=== PATIENT | male | born 1965 | race Two or more races ===

== ENCOUNTER 2018-11-01 09:29 | Inpatient (IN) | payer BC ==
[~2018-11-01] VITALS: Ht 162.6 cm; Wt 54.9 kg
[2018-11-25 14:00] VITALS: BP 116/70
== END 2018-11-25 15:39 | DRG 853 ==
LOC: ED 11:07 → EDIP 12:57 → 3NW 13:14 → 3NE 11-18 20:45
PROVIDERS: ADMIT Hospitalist; ATTEND Hospitalist
PROC: 0KBS0ZZ Excision of Right Lower Leg Muscle, Open Approach (ICD-10-PCS; principal; 2018-11-06)
PROC: 03HY32Z Insertion of Monitoring Device into Upper Artery, Percutaneous Approach (ICD-10-PCS; 2018-11-06)
PROC: 0KDS0ZZ Extraction of Right Lower Leg Muscle, Open Approach (ICD-10-PCS; 2018-11-11)
PROC: 0LBN0ZZ Excision of Right Lower Leg Tendon, Open Approach (ICD-10-PCS; 2018-11-13)
PROC: 0JBN0ZZ Excision of Right Lower Leg Subcutaneous Tissue and Fascia, Open Approach (ICD-10-PCS; 2018-11-16)
DX: A41.9 Sepsis, unspecified organism (principal); E43 Unspecified severe protein-calorie malnutrition; M72.6 Necrotizing fasciitis; E87.1 Hypo-osmolality and hyponatremia; L02.415 Cutaneous abscess of right lower limb; L02.611 Cutaneous abscess of right foot; L03.115 Cellulitis of right lower limb; D63.8 Anemia in other chronic diseases classified elsewhere; Z83.3 Family history of diabetes mellitus; Z87.891 Personal history of nicotine dependence; Z91.19 Patient's noncompliance with other medical treatment and regimen; E11.65 Type 2 diabetes mellitus with hyperglycemia; E11.40 Type 2 diabetes mellitus with diabetic neuropathy, unspecified; M60.871 Other myositis, right ankle and foot; Z68.20 Body mass index [BMI] 20.0-20.9, adult
CPT/HCPCS: 36415; 73610; 73630; 84145; 87106; 96361; 99291; J3490; 36573; 80048; 80053; 80061; 80202; 81001; 82962; 83036; 83605; 84443; 85025; 85651; 86140; 87040; 87070; 87081; 87205; 93005; 93922; 96374; 96375; A9585; G0378; J0171; J0690; J0692; J0744; J1100; J1170; J1335; J1644; J1885; J2250; J2405; J2543; J2704; J2997; J3010; J3370; Q9967; C1751; J0330; J0360; J1815; J2370; J7030; J7050; J7120

== ENCOUNTER 2019-04-10 19:22 | Inpatient (IN) | payer BC, MEDICAID ==
[~2019-04-10] VITALS: Ht 162.6 cm; Wt 61.2 kg
[~2019-04-10 19:22] MED LIST: ACET325T26 PO; INSU100I13 SQ-INSULIN; LISI5TAB7 PO; PANT40TA5 PO
[2019-04-10] MEDS ORDERED: SODIUM CHLORIDE FLUSH 10ML SYR IVF ONE (20:00)
[2019-04-10 20:13] LABS: BASOPHILS # (AUTO) 0.02 x10^3/uL (0-0.1); BASOPHILS % (AUTO) 0 % (0-1); EOSINOPHILS # (AUTO) 0.26 x10^3/uL (0-0.4); EOSINOPHILS % (AUTO) 2 % (1-7); LYMPHOCYTES # (AUTO) 1.22 x10^3/uL (1-3.4); LYMPHOCYTES % (AUTO) 9 % (22-44); MD NO; MEAN CORPUSCULAR HEMOGLOBIN 29.2 pg (27.5-34.5); MEAN CORPUSCULAR HGB CONC 32.9 g/dL (33.2-36.2); MEAN CORPUSCULAR VOLUME 88.8 fL (81-97); MEAN PLATELET VOLUME 9.7 fL (7.4-10.4); MONOCYTES # (AUTO) 0.98 x10^3/uL (0.2-0.8); MONOCYTES % (AUTO) 7 % (2-9); NEUTROPHILS # (AUTO) 11.32 x10^3/uL (1.8-6.8); NEUTROPHILS % (AUTO) 82 % (42-75); PLATELET COUNT 245 x10^3/uL (130-400); RED BLOOD COUNT 4.18 x10^6/uL (4.38-5.82); RED CELL DISTRIBUTION WIDTH 15.4 % (9.4-14.8)
[2019-04-10 20:25] LABS: ALANINE AMINOTRANSFERASE 52 U/L (12-78); ALBUMIN 2.5 g/dL (3.4-5.0); ANION GAP 11 mmol/L (5-15); CALCIUM 8.6 mg/dL (8.5-10.1); CHLORIDE 106 mmol/L (98-107); CREATININE 0.67 mg/dL (0.7-1.3)
[2019-04-10 20:28] LABS: ALKALINE PHOSPHATASE 253 U/L (45-117); BILIRUBIN,TOTAL 0.5 mg/dL (0.2-1.0); TOTAL PROTEIN 6.7 g/dL (6.4-8.2)
--- NOTE | 2019-04-10 20:35 | NUR ---
pt called to room from lobby
--- NOTE | 2019-04-10 20:50 | NUR ---
FIRST CONTACT WITH PT. PT SITTING UP IN [facility], STACY NOTED. PT REPORTS NON-PAINFUL RLE SWELLING/WOUND X SEVERAL MONTHS DESPITE SURGICAL DEBRIDEMENT. PT REPORTS THAT HE HAD BEEN USING WOUND CARE FOR SEVERAL MONTHS AND STOPPED APPROX TWO MONTHS AGO. RLE DISCOLORED X THREE DAYS, +3 PITTING EDEMA. LARGE OPEN WOUNDS NOTED OVER ANTERIOR ANKLE AND MEDIAL MALLEOLUS. LITTLE DRAINAGE NOTED. +DISTAL CAP REFILL AND STRONG PEDAL PULSES PRESENT. PT IS A NON-COMPLIANT TYPE TWO DIABETIC, "I AM SUPPOSE TO BE ON METFORMIN, BUT I HAVEN'T TAKEN IT FOR MONTHS". NOT ON ANTIBIOTICS CURRENTLY. BP/SPO2 MONITORING IN PLACE. AWAITING US.
[2019-04-10] MEDS ORDERED: PIPERACILLIN/TAZO/PMX 3.375GM 50 ML ONE (21:50)
[2019-04-10 21:52] LABS: HCT (SEDRATE) 37.1 % (39.2-51.8)
--- NOTE | 2019-04-10 21:59 | NUR ---
ABX INITIATED. BC X2 DRAWN PRIOR TO ADMIN
[2019-04-10] MEDS ORDERED: PIPERACILLIN/TAZO/PMX 3.375GM 50 ML IV ONE (22:00)
--- NOTE | 2019-04-10 22:40 | NUR ---
NO S/S OF ABX RXN NOTED. PT CONTINUES TO DENY PAIN
--- NOTE | 2019-04-10 23:18 | NUR ---
PT RESTING COMFORTABLY IN [facility]. PT CONTINUES TO DENY PAIN. AWAITING ADMIT
[2019-04-10] MEDS ORDERED: SODIUM CHLORIDE FLUSH 10ML SYR IVF PRN (23:30)
--- NOTE | 2019-04-10 23:45 | NUR ---
REPORT TO JOEL ALLEN
[2019-04-11 00:30] VITALS: BP 151/95
[2019-04-11 00:32] VITALS: BP 151/95
[2019-04-11] MEDS ORDERED: ERTAPENEM 1 GM in SODIUM CHLORIDE 0.9% 50 ML IV SCH (02:30)
[2019-04-11] MEDS: INSULIN LISPRO 100 UNITS/ML, PEN SQ-INSULIN SCH ×5 (02:30→21:43)
[2019-04-11] MEDS: DAPTOMYCIN 370 MG in SODIUM CHLORIDE 0.9% 100 ML IVPB SCH (03:44)
[2019-04-11] MEDS: PIPERACILLIN/TAZO/PMX 3.375GM 50 ML IV SCH ×4 (05:02→23:34)
[2019-04-11 08:18] VITALS: BP 151/96
[2019-04-11] MEDS: PANTOPROZOLE 40MG TABLET PO SCH (08:46)
[2019-04-11] MEDS: LISINOPRIL 5 MG TABLET PO SCH (08:46)
[2019-04-11] MEDS: HEPARIN 5,000 UNITS/ML, 1ML SQ SCH ×3 (08:46→23:34)
[2019-04-11] MEDS ORDERED: INSULIN GLARGINE 100 UNITS/ML, PEN SQ-INSULIN SCH ×2 (09:00→21:00)
[2019-04-11 12:58] VITALS: BP 138/85
[2019-04-11] MEDS ORDERED: GADOTERATE 7.5 MMOL/15 ML SYR ONE (14:09)
[2019-04-11 20:56] VITALS: BP 167/91
[2019-04-11] MEDS: ACETAMINOPHEN 325 MG TABLET PO PRN (21:42)
[2019-04-12 02:21] VITALS: BP 138/75
[2019-04-12] MEDS: DAPTOMYCIN 370 MG in SODIUM CHLORIDE 0.9% 100 ML IVPB SCH (02:44)
[2019-04-12 05:07] LABS: BASOPHILS # (AUTO) 0.06 x10^3/uL (0-0.1); BASOPHILS % (AUTO) 1 % (0-1); EOSINOPHILS # (AUTO) 0.14 x10^3/uL (0-0.4); EOSINOPHILS % (AUTO) 1 % (1-7); LYMPHOCYTES # (AUTO) 1.91 x10^3/uL (1-3.4); LYMPHOCYTES % (AUTO) 18 % (22-44); MD NO; MEAN CORPUSCULAR HEMOGLOBIN 28.9 pg (27.5-34.5); MEAN CORPUSCULAR HGB CONC 32.8 g/dL (33.2-36.2); MEAN CORPUSCULAR VOLUME 88.2 fL (81-97); MEAN PLATELET VOLUME 9.4 fL (7.4-10.4); MONOCYTES # (AUTO) 1.03 x10^3/uL (0.2-0.8); MONOCYTES % (AUTO) 10 % (2-9); NEUTROPHILS # (AUTO) 7.38 x10^3/uL (1.8-6.8); NEUTROPHILS % (AUTO) 70 % (42-75); PLATELET COUNT 233 x10^3/uL (130-400); RED BLOOD COUNT 3.57 x10^6/uL (4.38-5.82); RED CELL DISTRIBUTION WIDTH 15.8 % (9.4-14.8)
[2019-04-12 05:12] LABS: ANION GAP 7 mmol/L (5-15); CALCIUM 8.2 mg/dL (8.5-10.1); CHLORIDE 109 mmol/L (98-107)
[2019-04-12 05:13] LABS: CREATININE 0.52 mg/dL (0.7-1.3)
[2019-04-12] MEDS: PIPERACILLIN/TAZO/PMX 3.375GM 50 ML IV SCH ×4 (05:38→23:16)
[2019-04-12 05:42] LABS: HEMOGLOBIN A1C 11.5 % (4.2-6.3)
[2019-04-12] MEDS: INSULIN LISPRO 100 UNITS/ML, PEN SQ-INSULIN SCH ×4 (07:00→21:52)
[2019-04-12 07:18] VITALS: BP 149/89
[2019-04-12] MEDS: HEPARIN 5,000 UNITS/ML, 1ML SQ SCH ×3 (07:57→23:17)
[2019-04-12] MEDS: LISINOPRIL 5 MG TABLET PO SCH (07:58)
[2019-04-12] MEDS: PANTOPROZOLE 40MG TABLET PO SCH (07:58)
[2019-04-12] MEDS ORDERED: INSULIN GLARGINE 100 UNITS/ML, PEN SQ-INSULIN SCH (09:00)
[2019-04-12 12:04] VITALS: BP 165/96
[2019-04-12 20:15] VITALS: BP 167/92
[2019-04-12] MEDS: INSULIN GLARGINE 100 UNITS/ML, PEN SQ-INSULIN SCH (21:52)
[2019-04-12] MEDS: ACETAMINOPHEN 325 MG TABLET PO PRN (21:53)
[2019-04-13 02:17] VITALS: BP 153/82
[2019-04-13] MEDS: DAPTOMYCIN 370 MG in SODIUM CHLORIDE 0.9% 100 ML IVPB SCH (03:09)
[2019-04-13 05:12] LABS: BASOPHILS # (AUTO) 0.07 x10^3/uL (0-0.1); BASOPHILS % (AUTO) 1 % (0-1); EOSINOPHILS # (AUTO) 0.21 x10^3/uL (0-0.4); EOSINOPHILS % (AUTO) 2 % (1-7); LYMPHOCYTES # (AUTO) 1.91 x10^3/uL (1-3.4); LYMPHOCYTES % (AUTO) 16 % (22-44); MD NO; MEAN CORPUSCULAR HEMOGLOBIN 28.7 pg (27.5-34.5); MEAN CORPUSCULAR HGB CONC 32.5 g/dL (33.2-36.2); MEAN CORPUSCULAR VOLUME 88.5 fL (81-97); MEAN PLATELET VOLUME 8.9 fL (7.4-10.4); MONOCYTES # (AUTO) 1.04 x10^3/uL (0.2-0.8); MONOCYTES % (AUTO) 9 % (2-9); NEUTROPHILS % (AUTO) 73 % (42-75); PLATELET COUNT 255 x10^3/uL (130-400); RED BLOOD COUNT 3.65 x10^6/uL (4.38-5.82)
[2019-04-13] MEDS: PIPERACILLIN/TAZO/PMX 3.375GM 50 ML IV SCH ×4 (05:12→23:29)
[2019-04-13 05:23] LABS: ANION GAP 6 mmol/L (5-15); CALCIUM 8.3 mg/dL (8.5-10.1); CHLORIDE 110 mmol/L (98-107)
[2019-04-13 05:25] LABS: CREATININE 0.53 mg/dL (0.7-1.3)
[2019-04-13] MEDS: INSULIN LISPRO 100 UNITS/ML, PEN SQ-INSULIN SCH ×4 (07:00→20:56)
[2019-04-13 07:33] VITALS: BP 152/87
[2019-04-13] MEDS: HEPARIN 5,000 UNITS/ML, 1ML SQ SCH ×3 (07:42→23:29)
[2019-04-13] MEDS: LISINOPRIL 5 MG TABLET PO SCH (07:43)
[2019-04-13] MEDS: PANTOPROZOLE 40MG TABLET PO SCH (07:43)
[2019-04-13] MEDS: INSULIN GLARGINE 100 UNITS/ML, PEN SQ-INSULIN SCH ×2 (07:43→20:56)
[2019-04-13] MEDS ORDERED: FLU VACC QS2019-20 36MOS UP/PF 0.5 ML IM-VACC ONE (11:00)
[2019-04-13 13:48] VITALS: BP 174/93
[2019-04-13 19:29] VITALS: BP 176/98
[2019-04-14 02:10] VITALS: BP 160/86
[2019-04-14] MEDS: DAPTOMYCIN 370 MG in SODIUM CHLORIDE 0.9% 100 ML IVPB SCH (02:56)
[2019-04-14] MEDS: PIPERACILLIN/TAZO/PMX 3.375GM 50 ML IV SCH ×4 (05:07→23:24)
[2019-04-14 05:51] LABS: BASOPHILS # (AUTO) 0.22 x10^3/uL (0-0.1); BASOPHILS % (AUTO) 2 % (0-1); EOSINOPHILS # (AUTO) 0.23 x10^3/uL (0-0.4); EOSINOPHILS % (AUTO) 2 % (1-7); LYMPHOCYTES % (AUTO) 18 % (22-44); MD NO; MEAN CORPUSCULAR HEMOGLOBIN 28.9 pg (27.5-34.5); MEAN CORPUSCULAR HGB CONC 33.2 g/dL (33.2-36.2); MEAN CORPUSCULAR VOLUME 87.2 fL (81-97); MONOCYTES # (AUTO) 0.67 x10^3/uL (0.2-0.8); MONOCYTES % (AUTO) 6 % (2-9); NEUTROPHILS # (AUTO) 7.64 x10^3/uL (1.8-6.8); NEUTROPHILS % (AUTO) 72 % (42-75); PLATELET COUNT 256 x10^3/uL (130-400); RED BLOOD COUNT 3.67 x10^6/uL (4.38-5.82); RED CELL DISTRIBUTION WIDTH 16.3 % (9.4-14.8)
[2019-04-14 06:00] LABS: ANION GAP 6 mmol/L (5-15); CALCIUM 8.3 mg/dL (8.5-10.1); CHLORIDE 111 mmol/L (98-107); CREATININE 0.48 mg/dL (0.7-1.3)
[2019-04-14] MEDS: INSULIN LISPRO 100 UNITS/ML, PEN SQ-INSULIN SCH ×4 (07:00→21:08)
[2019-04-14 07:11] VITALS: BP 146/83
[2019-04-14] MEDS: LISINOPRIL 5 MG TABLET PO SCH (08:10)
[2019-04-14] MEDS: PANTOPROZOLE 40MG TABLET PO SCH (08:11)
[2019-04-14] MEDS: INSULIN GLARGINE 100 UNITS/ML, PEN SQ-INSULIN SCH ×3 (08:11→21:08)
[2019-04-14] MEDS: HEPARIN 5,000 UNITS/ML, 1ML SQ SCH ×3 (08:11→23:24)
[2019-04-14 13:25] VITALS: BP 134/84
[2019-04-14 18:39] VITALS: BP 157/90
[2019-04-15 02:13] VITALS: BP 160/89
[2019-04-15] MEDS: DAPTOMYCIN 370 MG in SODIUM CHLORIDE 0.9% 100 ML IVPB SCH (02:38)
[2019-04-15] MEDS: PIPERACILLIN/TAZO/PMX 3.375GM 50 ML IV SCH ×4 (05:08→23:30)
[2019-04-15 05:35] LABS: BASOPHILS # (AUTO) 0.04 x10^3/uL (0-0.1); BASOPHILS % (AUTO) 1 % (0-1); EOSINOPHILS # (AUTO) 0.19 x10^3/uL (0-0.4); EOSINOPHILS % (AUTO) 2 % (1-7); LYMPHOCYTES # (AUTO) 1.88 x10^3/uL (1-3.4); LYMPHOCYTES % (AUTO) 20 % (22-44); MD NO; MEAN CORPUSCULAR HEMOGLOBIN 28.4 pg (27.5-34.5); MEAN CORPUSCULAR HGB CONC 32.8 g/dL (33.2-36.2); MEAN CORPUSCULAR VOLUME 86.7 fL (81-97); MEAN PLATELET VOLUME 8.6 fL (7.4-10.4); MONOCYTES # (AUTO) 0.64 x10^3/uL (0.2-0.8); MONOCYTES % (AUTO) 7 % (2-9); NEUTROPHILS # (AUTO) 6.88 x10^3/uL (1.8-6.8); NEUTROPHILS % (AUTO) 71 % (42-75); PLATELET COUNT 254 x10^3/uL (130-400); RED BLOOD COUNT 3.53 x10^6/uL (4.38-5.82); RED CELL DISTRIBUTION WIDTH 15.7 % (9.4-14.8)
[2019-04-15 05:56] LABS: ANION GAP 7 mmol/L (5-15); CALCIUM 8.5 mg/dL (8.5-10.1); CHLORIDE 111 mmol/L (98-107)
[2019-04-15 05:59] LABS: CREATININE 0.63 mg/dL (0.7-1.3)
[2019-04-15] MEDS: INSULIN LISPRO 100 UNITS/ML, PEN SQ-INSULIN SCH ×4 (07:00→21:38)
[2019-04-15] MEDS: INSULIN GLARGINE 100 UNITS/ML, PEN SQ-INSULIN SCH ×2 (09:00→21:39)
[2019-04-15] MEDS: HEPARIN 5,000 UNITS/ML, 1ML SQ SCH ×3 (09:23→23:30)
[2019-04-15] MEDS: PANTOPROZOLE 40MG TABLET PO SCH (09:23)
[2019-04-15] MEDS: LISINOPRIL 5 MG TABLET PO SCH (09:23)
[2019-04-15 11:20] VITALS: BP 162/92
[2019-04-15 15:17] VITALS: BP 168/97
[2019-04-15 18:37] VITALS: BP 177/95
[2019-04-15] MEDS ORDERED: LISINOPRIL 5 MG TABLET PO SCH (19:30)
[2019-04-15 21:37] VITALS: BP 174/99
[2019-04-16 01:05] VITALS: BP 165/89
[2019-04-16] MEDS: PIPERACILLIN/TAZO/PMX 3.375GM 50 ML IV SCH ×4 (05:04→23:42)
[2019-04-16] MEDS: INSULIN LISPRO 100 UNITS/ML, PEN SQ-INSULIN SCH ×4 (07:00→21:07)
[2019-04-16] MEDS: PANTOPROZOLE 40MG TABLET PO SCH (08:38)
[2019-04-16] MEDS: LISINOPRIL 5 MG TABLET PO SCH (08:38)
[2019-04-16] MEDS: HEPARIN 5,000 UNITS/ML, 1ML SQ SCH ×3 (08:38→23:42)
[2019-04-16] MEDS: INSULIN GLARGINE 100 UNITS/ML, PEN SQ-INSULIN SCH ×2 (08:38→21:07)
[2019-04-16] MEDS ORDERED: MORPHINE SULFATE 4 MG/ML, 1ML ONE (10:57)
[2019-04-16] MEDS ORDERED: MORPHINE SULFATE 4 MG/ML, 1ML IVPush PRN (11:00)
[2019-04-16] MEDS ORDERED: MORPHINE SULFATE 4 MG/ML, 1ML IVPush ONE (11:30)
[2019-04-16] MEDS ORDERED: LISINOPRIL 5 MG TABLET PO ONE (13:00)
[2019-04-16 13:30] VITALS: BP 165/93
[2019-04-16] MEDS: metFORMIN 500 MG TABLET PO SCH (16:37)
[2019-04-16 19:24] VITALS: BP 172/92
[2019-04-16 20:55] VITALS: BP 168/88
[2019-04-17] VITALS (9 sets, daily range): BP systolic 155–182; BP diastolic 81–96
[2019-04-17] MEDS: PIPERACILLIN/TAZO/PMX 3.375GM 50 ML IV SCH ×3 (05:03→17:09)
[2019-04-17 05:29] LABS: BASOPHILS # (AUTO) 0.04 x10^3/uL (0-0.1); BASOPHILS % (AUTO) 0 % (0-1); EOSINOPHILS # (AUTO) 0.23 x10^3/uL (0-0.4); EOSINOPHILS % (AUTO) 2 % (1-7); LYMPHOCYTES # (AUTO) 1.82 x10^3/uL (1-3.4); LYMPHOCYTES % (AUTO) 19 % (22-44); MD NO; MEAN CORPUSCULAR HEMOGLOBIN 29.6 pg (27.5-34.5); MEAN CORPUSCULAR HGB CONC 33.4 g/dL (33.2-36.2); MEAN CORPUSCULAR VOLUME 88.4 fL (81-97); MEAN PLATELET VOLUME 9.1 fL (7.4-10.4); MONOCYTES % (AUTO) 5 % (2-9); NEUTROPHILS # (AUTO) 6.96 x10^3/uL (1.8-6.8); NEUTROPHILS % (AUTO) 73 % (42-75); PLATELET COUNT 251 x10^3/uL (130-400); RED BLOOD COUNT 3.75 x10^6/uL (4.38-5.82); RED CELL DISTRIBUTION WIDTH 16.2 % (9.4-14.8)
[2019-04-17 05:35] LABS: ANION GAP 6 mmol/L (5-15); CALCIUM 8.5 mg/dL (8.5-10.1); CHLORIDE 108 mmol/L (98-107); CREATININE 0.69 mg/dL (0.7-1.3)
[2019-04-17] MEDS: INSULIN LISPRO 100 UNITS/ML, PEN SQ-INSULIN SCH ×4 (07:00→21:27)
[2019-04-17] MEDS ORDERED: CEFAZOLIN 2,000 MG in SODIUM CHLORIDE 0.9% 50 ML IV SCH (08:30)
[2019-04-17] MEDS: HEPARIN 5,000 UNITS/ML, 1ML SQ SCH ×2 (09:54→15:49)
[2019-04-17] MEDS: metFORMIN 500 MG TABLET PO SCH ×2 (09:55→17:09)
[2019-04-17] MEDS: PANTOPROZOLE 40MG TABLET PO SCH (09:55)
[2019-04-17] MEDS: LISINOPRIL 5 MG TABLET PO SCH (09:55)
[2019-04-17] MEDS: INSULIN GLARGINE 100 UNITS/ML, PEN SQ-INSULIN SCH ×2 (09:56→21:27)
[2019-04-17] MEDS ORDERED: ENALAPRILAT 1.25 MG/ML, 2ML IV PRN (13:00)
[2019-04-17] MEDS: AMLODIPINE 5 MG TABLET PO SCH (13:06)
[2019-04-17] MEDS ORDERED: hydrALAzine 20 MG/ML, 1ML IV PRN (16:30)
[2019-04-18] MEDS: PIPERACILLIN/TAZO/PMX 3.375GM 50 ML IV SCH ×5 (00:02→23:26)
[2019-04-18] MEDS: HEPARIN 5,000 UNITS/ML, 1ML SQ SCH ×3 (00:04→16:01)
[2019-04-18 02:21] VITALS: BP 149/85
[2019-04-18 06:53] VITALS: BP 138/81
[2019-04-18] MEDS: INSULIN LISPRO 100 UNITS/ML, PEN SQ-INSULIN SCH ×4 (07:00→20:46)
[2019-04-18] MEDS: metFORMIN 500 MG TABLET PO SCH ×2 (09:57→16:01)
[2019-04-18] MEDS: PANTOPROZOLE 40MG TABLET PO SCH (09:57)
[2019-04-18] MEDS: AMLODIPINE 5 MG TABLET PO SCH (09:57)
[2019-04-18] MEDS: INSULIN GLARGINE 100 UNITS/ML, PEN SQ-INSULIN SCH ×2 (09:57→20:46)
[2019-04-18] MEDS: LISINOPRIL 5 MG TABLET PO SCH (09:58)
[2019-04-18 13:14] VITALS: BP 155/88
[2019-04-18 18:53] VITALS: BP 149/87
[2019-04-19 02:24] VITALS: BP 139/79
[2019-04-19] MEDS: HEPARIN 5,000 UNITS/ML, 1ML SQ SCH ×3 (05:00→21:51)
[2019-04-19] MEDS: PIPERACILLIN/TAZO/PMX 3.375GM 50 ML IV SCH ×3 (05:35→18:23)
[2019-04-19] MEDS: INSULIN LISPRO 100 UNITS/ML, PEN SQ-INSULIN SCH ×4 (07:00→22:01)
[2019-04-19] MEDS: INSULIN GLARGINE 100 UNITS/ML, PEN SQ-INSULIN SCH ×2 (08:38→22:02)
[2019-04-19 08:42] VITALS: BP 149/83
[2019-04-19] MEDS: AMLODIPINE 5 MG TABLET PO SCH (08:44)
[2019-04-19] MEDS: LISINOPRIL 5 MG TABLET PO SCH (08:44)
[2019-04-19] MEDS: metFORMIN 500 MG TABLET PO SCH ×2 (08:44→18:23)
[2019-04-19] MEDS: PANTOPROZOLE 40MG TABLET PO SCH (08:44)
[2019-04-19 18:41] VITALS: BP 126/76
[2019-04-20] MEDS: PIPERACILLIN/TAZO/PMX 3.375GM 50 ML IV SCH ×5 (00:05→23:23)
[2019-04-20 00:57] VITALS: BP 143/86
[2019-04-20] MEDS: HEPARIN 5,000 UNITS/ML, 1ML SQ SCH ×3 (05:37→21:07)
[2019-04-20] MEDS: INSULIN LISPRO 100 UNITS/ML, PEN SQ-INSULIN SCH ×4 (07:00→21:08)
[2019-04-20 07:19] VITALS: BP 135/84
[2019-04-20] MEDS: AMLODIPINE 5 MG TABLET PO SCH (09:03)
[2019-04-20] MEDS: metFORMIN 500 MG TABLET PO SCH ×2 (09:03→16:41)
[2019-04-20] MEDS: PANTOPROZOLE 40MG TABLET PO SCH (09:03)
[2019-04-20] MEDS: INSULIN GLARGINE 100 UNITS/ML, PEN SQ-INSULIN SCH ×2 (09:03→21:09)
[2019-04-20] MEDS: LISINOPRIL 5 MG TABLET PO SCH (09:03)
[2019-04-20 15:11] VITALS: BP 130/76
[2019-04-20 19:08] VITALS: BP 134/79
[2019-04-21 00:57] VITALS: BP 149/80
[2019-04-21 05:16] LABS: BASOPHILS # (AUTO) 0.05 x10^3/uL (0-0.1); BASOPHILS % (AUTO) 1 % (0-1); EOSINOPHILS # (AUTO) 0.19 x10^3/uL (0-0.4); EOSINOPHILS % (AUTO) 2 % (1-7); HCT (SEDRATE) 36.5 % (39.2-51.8); LYMPHOCYTES # (AUTO) 1.76 x10^3/uL (1-3.4); LYMPHOCYTES % (AUTO) 23 % (22-44); MD NO; MEAN CORPUSCULAR HEMOGLOBIN 28.6 pg (27.5-34.5); MEAN CORPUSCULAR HGB CONC 32.5 g/dL (33.2-36.2); MEAN CORPUSCULAR VOLUME 88.1 fL (81-97); MEAN PLATELET VOLUME 9.2 fL (7.4-10.4); MONOCYTES # (AUTO) 0.51 x10^3/uL (0.2-0.8); MONOCYTES % (AUTO) 7 % (2-9); NEUTROPHILS # (AUTO) 5.15 x10^3/uL (1.8-6.8); NEUTROPHILS % (AUTO) 67 % (42-75); PLATELET COUNT 304 x10^3/uL (130-400); RED BLOOD COUNT 4.14 x10^6/uL (4.38-5.82)
[2019-04-21] MEDS: HEPARIN 5,000 UNITS/ML, 1ML SQ SCH ×2 (05:32→12:22)
[2019-04-21] MEDS: PIPERACILLIN/TAZO/PMX 3.375GM 50 ML IV SCH ×2 (05:32→12:22)
[2019-04-21] MEDS: INSULIN LISPRO 100 UNITS/ML, PEN SQ-INSULIN SCH ×2 (07:00→12:22)
[2019-04-21 09:02] VITALS: BP 149/81
[2019-04-21] MEDS: PANTOPROZOLE 40MG TABLET PO SCH (09:39)
[2019-04-21] MEDS: INSULIN GLARGINE 100 UNITS/ML, PEN SQ-INSULIN SCH (09:39)
[2019-04-21] MEDS: AMLODIPINE 5 MG TABLET PO SCH (09:39)
[2019-04-21] MEDS: LISINOPRIL 5 MG TABLET PO SCH (09:39)
[2019-04-21] MEDS: metFORMIN 500 MG TABLET PO SCH (09:39)
[2019-04-21] MEDS ORDERED: HEPA50002 SQ (10:53)
[2019-04-21] MEDS ORDERED: METF500T PO (10:53)
[2019-04-21] MEDS ORDERED: AMLO-150 PO (10:53)
[2019-04-21] MEDS ORDERED: PIPE3.373 IV (10:53)
[2019-04-21] MEDS ORDERED: INSU100I13 SQ-INSULIN ×2 (10:53)
[2019-04-21] MEDS ORDERED: INSU100I11 SQ-INSULIN (10:53)
[2019-04-21] MEDS ORDERED: LISI5TAB7 PO (10:53)
[2019-04-21] MEDS ORDERED: ACET325T26 PO (10:53)
[2019-04-21] MEDS ORDERED: PANT40TA5 PO (10:53)
== END 2019-04-21 14:42 | DRG 593 ==
LOC: ED 20:00 → EDIP 23:28 → 4NE 04-11 00:15 → 3N 04-14 12:48
PROVIDERS: ADMIT Internal Medicine; ATTEND Internal Medicine
DX: L89.512 Pressure ulcer of right ankle, stage 2 (principal); L03.115 Cellulitis of right lower limb; B95.61 Methicillin susceptible Staphylococcus aureus infection as the cause of diseases classified elsewhere; D64.9 Anemia, unspecified; E11.622 Type 2 diabetes mellitus with other skin ulcer; E11.65 Type 2 diabetes mellitus with hyperglycemia; I10 Essential (primary) hypertension; E11.42 Type 2 diabetes mellitus with diabetic polyneuropathy; M60.9 Myositis, unspecified; M77.9 Enthesopathy, unspecified; Z89.519 Acquired absence of unspecified leg below knee; Z87.891 Personal history of nicotine dependence; Z79.899 Other long term (current) drug therapy; Z79.4 Long term (current) use of insulin
CPT/HCPCS: 36415; 80048; 80053; 82962; 83036; 83605; 84145; 85025; 85651; 86140; 87040; 87070; 87077; 87186; 87205; 93922; 97162; 99285; G0378; J0878; J1644; J2543; A9575; J0360; J1815; J2270